=== PATIENT | female | born 1940 | race African-American/Black ===

== ENCOUNTER 2017-09-18 10:10 | Inpatient (IN) | payer OTHER ==
[~2017-09-18] VITALS: Ht 162.6 cm; Wt 65.3 kg
[2017-09-18] MEDS ORDERED: ASPIRIN 81MG TABLET PO STA (10:21)
[2017-09-18 11:01] LABS: BASOPHILS % 0.3 % (0.0-2.0); EOSINOPHILS % 0.9 % (0.0-5.0); HEMATOCRIT. 25.1 % (36.0-48.0); HEMOGLOBIN. 8.4 g/dL (12.0-16.0); LYMPHOCYTES % 21.9 % (20.0-50.0); MEAN CORPUSCULAR HEMOGLOBIN 29.5 pg (28.0-32.0); MEAN CORPUSCULAR VOLUME 88.4 fL (81.0-99.0); MEAN PLATELET VOLUME 8.2 fl (7.4-10.4); MONOCYTES % 5.6 % (2.0-8.0); NEUTROPHILS % 71.3 % (40.0-76.0); PLATELET 248 x1000/uL (130-400); RED BLOOD CELL COUNT 2.84 mill/uL (4.2-5.4); RED CELL DISTRIBUTION WIDTH 14.1 % (11.6-14.6)
[2017-09-18] MEDS ORDERED: MORPHINE SULFATE 4 MG/ML CPJ (NOT FOR IM USE) IV STA (11:06)
[2017-09-18] MEDS ORDERED: ONDANSETRON HCL 4MG/2ML VIAL IV STA (11:06)
[2017-09-18 11:15] LABS: CHLORIDE 105 mEq/L (98-107)
[2017-09-18 11:29] LABS: BG BASE EXCESS 1.2 mmol/L (-2.0-2.0); BG CARBOXYHEMOGLOBIN 0.2 % (0.5-1.5); BG DEOXYHEMOGLOBIN 0.2 % (0.0-5.0); BG FRACTION INSPIRED OXYGEN 100; BG HCO3 ACT 20.8 mmol/L (22.0-26.0); BG METHEMOGLOBIN 0.2 % (0.0-1.5); BG OXYGEN SATURATION 99.8 % (92.0-98.5); BG OXYHEMOGLOBIN 99.4 % (94.0-97.0); BG PCO2 18.1 mmHg (35.0-45.0); BG PH 7.679 (7.350-7.450); BG PO2 549.4 mmHg (75.0-100.0); BG SAMPLE SITE RIGHT BRACHIAL; BG VENT MODE MASK - BIPAP; BG VENT RATE 20 set
[2017-09-18 11:52] LABS: D-DIMER 0.89 mg/L FEU (<0.50); INR 1.1; PARTIAL THROMBOPLASTIN TIME 21.4 sec (23.4-31.0); PROTHROMBIN TIME 11.2 sec (9.4-11.6)
[2017-09-18] MEDS ORDERED: ENOXAPARIN 80MG/0.8ML SYR SUBCUT ONE (12:30)
[2017-09-18 16:23] VITALS: BP 118/72
[2017-09-18 16:51] VITALS: BP 118/72
[2017-09-18] MEDS ORDERED: LORAZEPAM 1MG TABLET PO PRN (17:00)
[2017-09-18] MEDS ORDERED: GUAIFENESIN 200MG/10ML SUGAR FREE UDC PO PRN (17:45)
[2017-09-18] MEDS ORDERED: IPRATROPIUM/ALBUTEROL 0.5-3(2.5)MG/3ML NEB INH PRN (17:45)
[2017-09-18] MEDS ORDERED: DOCUSATE SODIUM 100MG CAPSULE PO PRN (17:45)
[2017-09-18] MEDS ORDERED: MAGNESIUM/ALUMINUM HYDROXIDE/SIMETHICONE 30ML UDC PO PRN (17:45)
[2017-09-18] MEDS ORDERED: DIPHENHYDRAMINE 50MG/ML VIAL IV PRN (17:45)
[2017-09-18] MEDS ORDERED: ACETAMINOPHEN 650MG SUPP PR PRN (17:45)
[2017-09-18] MEDS ORDERED: ACETAMINOPHEN 325MG TABLET PO PRN (17:45)
[2017-09-18] MEDS ORDERED: DEXTROSE 50% WATER 50ML SYRINGE IV PRN (17:45)
[2017-09-18] MEDS ORDERED: ACETAMINOPHEN 650MG/20.3ML UDC GT PRN (17:45)
[2017-09-18] MEDS ORDERED: ONDANSETRON HCL 4MG/2ML VIAL IV PRN (17:45)
[2017-09-18] MEDS ORDERED: CLONIDINE 0.1MG TABLET PO PRN (17:45)
[2017-09-18] MEDS ORDERED: METHYLPREDNISOLONE SOD SUCC 40 MG/ML VIAL IV SCH (17:45)
[2017-09-18] MEDS ORDERED: NA PHOS,M-B/NA PHOS,DI-BA ENEMA 118ML PR PRN (17:45)
[2017-09-18] MEDS ORDERED: HYDROCODONE/ACETAMINOPHEN 5/325MG TABLET PO PRN (17:45)
[2017-09-18 17:53] LABS: BG BASE EXCESS -4.9 mmol/L (-2.0-2.0); BG CARBOXYHEMOGLOBIN 0.3 % (0.5-1.5); BG DEOXYHEMOGLOBIN 6.5 % (0.0-5.0); BG FRACTION INSPIRED OXYGEN 32; BG HCO3 ACT 18.9 mmol/L (22.0-26.0); BG OXYGEN SATURATION 93.5 % (92.0-98.5); BG OXYHEMOGLOBIN 93.2 % (94.0-97.0); BG PCO2 30.8 mmHg (35.0-45.0); BG PH 7.405 (7.350-7.450); BG PO2 73.9 mmHg (75.0-100.0); BG SAMPLE SITE RIGHT BRACHIAL; BG VENT MODE NASAL CANNULA
[2017-09-18] MEDS: METHYLPREDNISOLONE SOD SUCC 125 MG/2 ML VIAL IV SCH (17:57)
[2017-09-18] MEDS: PANTOPRAZOLE SODIUM 40 MG/VIAL IV SCH (18:02)
[2017-09-18] MEDS ORDERED: LEVOFLOXACIN 500MG PREMIX 100 ML IV NR (19:00)
[2017-09-18] MEDS ORDERED: FLUT1DIS2 IH (19:50)
[2017-09-18] MEDS ORDERED: ATOR40TA70 PO (19:50)
[2017-09-18] MEDS ORDERED: PRED5TAB48 PO (19:50)
[2017-09-18] MEDS ORDERED: OMEP20CA10 PO (19:50)
[2017-09-18] MEDS ORDERED: ASPI-1159 PO (19:50)
[2017-09-18] MEDS ORDERED: MEMA10TA2 PO (19:50)
[2017-09-18] MEDS ORDERED: MIDO10TA PO (19:50)
[2017-09-18] MEDS ORDERED: HYDR12.54 PO (19:50)
[2017-09-18] MEDS ORDERED: LISI-604 PO (19:50)
[2017-09-18] MEDS ORDERED: GABA100C PO (19:50)
[2017-09-18] MEDS ORDERED: MORP30TA54 PO (19:50)
[2017-09-18] MEDS ORDERED: FORTICAL (19:52)
[2017-09-18 20:00] VITALS: BP 126/57
[2017-09-18] MEDS ORDERED: INSNPH SUBCUT (20:01)
[2017-09-18] MEDS: IPRATROPIUM/ALBUTEROL 0.5-3(2.5)MG/3ML NEB HHN SCH (20:48)
[2017-09-18] MEDS: BLOOD SUGAR DIAGNOSTIC STRIP TEST SCH (21:00)
[2017-09-18] MEDS: INSULIN LISPRO 100 UNITS/ML SUBCUT SCH (21:30)
[2017-09-18] MEDS: SODIUM CHLORIDE 0.9% INJ 3ML FLUSH IVF SCH (21:41)
[2017-09-18 22:00] VITALS: BP 116/66
[2017-09-18 23:41] LABS: CREATINE KINASE 46 IU/L (26-192)
[2017-09-19] VITALS (20 sets, daily range): BP systolic 91–151; BP diastolic 53–86
[2017-09-19] MEDS: IPRATROPIUM/ALBUTEROL 0.5-3(2.5)MG/3ML NEB HHN SCH ×6 (00:45→20:58)
[2017-09-19] MEDS ORDERED: HALOPERIDOL LACTATE 5MG/ML VIAL IM SCH (02:07)
[2017-09-19] MEDS ORDERED: HALOPERIDOL LACTATE 5MG/ML VIAL IM ONE (02:45)
[2017-09-19] MEDS: METHYLPREDNISOLONE SOD SUCC 125 MG/2 ML VIAL IV SCH ×2 (02:46→09:05)
[2017-09-19] MEDS: SODIUM CHLORIDE 0.9% INJ 3ML FLUSH IVF SCH ×3 (05:56→22:11)
[2017-09-19] MEDS: BLOOD SUGAR DIAGNOSTIC STRIP TEST SCH ×4 (05:56→22:01)
[2017-09-19 07:29] LABS: MEAN CORPUSCULAR HEMOGLOBIN 29.5 pg (28.0-32.0); MEAN CORPUSCULAR VOLUME 90.6 fL (81.0-99.0); MEAN PLATELET VOLUME 8.4 fl (7.4-10.4); PLATELET 238 x1000/uL (130-400); RED BLOOD CELL COUNT 2.18 mill/uL (4.2-5.4); RED CELL DISTRIBUTION WIDTH 14.7 % (11.6-14.6)
[2017-09-19] MEDS: INSULIN LISPRO 100 UNITS/ML SUBCUT SCH ×4 (08:08→22:11)
[2017-09-19 08:12] LABS: CHLORIDE 111 mEq/L (98-107)
[2017-09-19 08:37] LABS: CREATINE KINASE 46 IU/L (26-192); HDL CHOLESTEROL 36 mg/dL (40-59); LDL CHOLESTEROL 37 mg/dL (5-100)
[2017-09-19 08:59] LABS: BG BASE EXCESS -4.9 mmol/L (-2.0-2.0); BG CARBOXYHEMOGLOBIN 0.4 % (0.5-1.5); BG DEOXYHEMOGLOBIN 4.5 % (0.0-5.0); BG FRACTION INSPIRED OXYGEN 21; BG HCO3 ACT 19.2 mmol/L (22.0-26.0); BG METHEMOGLOBIN 0.3 % (0.0-1.5); BG OXYGEN SATURATION 95.5 % (92.0-98.5); BG OXYHEMOGLOBIN 94.8 % (94.0-97.0); BG PCO2 31.2 mmHg (35.0-45.0); BG PH 7.407 (7.350-7.450); BG PO2 86.3 mmHg (75.0-100.0); BG SAMPLE SITE RIGHT BRACHIAL; BG TOTAL HEMOGLOBIN 7.3 g/dL (12.0-18.0); BG VENT MODE ROOM AIR
[2017-09-19] MEDS ORDERED: ENOXAPARIN 40MG/0.4ML SYR SUBCUT SCH (09:00)
[2017-09-19] MEDS: PANTOPRAZOLE SODIUM 40 MG/VIAL IV SCH (09:05)
[2017-09-19 10:01] LABS: HEMOGLOBIN. 6.4 g/dL (12.0-16.0)
[2017-09-19 10:03] LABS: HEMATOCRIT. 19.7 % (36.0-48.0)
[2017-09-19 13:16] LABS: TOTAL IRON BINDING CAPACITY 202 ug/dL (250-450)
[2017-09-19 13:38] LABS: FOLIC ACID (FOLATE) SERUM >20 ng/mL ng/mL (>5.38)
[2017-09-19 13:43] LABS: VITAMIN B12 SERUM 252 pg/mL (211-911)
[2017-09-19] MEDS: METHYLPREDNISOLONE SOD SUCC 40 MG/ML VIAL IV SCH (17:28)
[2017-09-19 19:00] LABS: PLATELET ESTIMATE NORMAL
[2017-09-19] MEDS ORDERED: LEVOFLOXACIN 250MG PREMIX 50 ML IV SCH (20:00)
[2017-09-19 21:46] LABS: HEMATOCRIT 28.2 % (36.0-48.0); HEMOGLOBIN 9.7 g/dL (12.0-16.0)
[2017-09-19 21:55] LABS: INR 1.1
[2017-09-20] VITALS (14 sets, daily range): BP systolic 104–154; BP diastolic 59–76
[2017-09-20] MEDS: IPRATROPIUM/ALBUTEROL 0.5-3(2.5)MG/3ML NEB HHN SCH ×6 (00:47→20:01)
[2017-09-20] MEDS: METHYLPREDNISOLONE SOD SUCC 40 MG/ML VIAL IV SCH ×3 (01:42→17:05)
[2017-09-20] MEDS: BLOOD SUGAR DIAGNOSTIC STRIP TEST SCH ×3 (06:35→16:41)
[2017-09-20] MEDS: SODIUM CHLORIDE 0.9% INJ 3ML FLUSH IVF SCH ×2 (06:40→17:06)
[2017-09-20] MEDS: INSULIN LISPRO 100 UNITS/ML SUBCUT SCH ×3 (07:57→17:06)
[2017-09-20] MEDS: PANTOPRAZOLE SODIUM 40 MG/VIAL IV SCH (09:46)
[2017-09-20] MEDS ORDERED: PREDNISONE 10MG TABLET PO SCH (10:30)
== END 2017-09-20 21:02 | disposition short-term general hospital (02) | DRG 189 ==
LOC: ER 10:10 → 3WST 12:48 → EDBEDREQTM 12:50 → EDBEDREQ 12:50 → ENRESERV 14:07 → 3WST 17:08
PROVIDERS: ADMIT Family Medicine; ATTEND Family Medicine
PROC: 5A09357 Assistance with Respiratory Ventilation, Less than 24 Consecutive Hours, Continuous Positive Airway Pressure (ICD-10-PCS; principal; 2017-09-18)
PROC: 30233N1 Transfusion of Nonautologous Red Blood Cells into Peripheral Vein, Percutaneous Approach (ICD-10-PCS; 2017-09-19)
DX: J96.01 Acute respiratory failure with hypoxia (principal); D64.9 Anemia, unspecified; E11.9 Type 2 diabetes mellitus without complications; J44.9 Chronic obstructive pulmonary disease, unspecified; E87.6 Hypokalemia; I10 Essential (primary) hypertension; K92.1 Melena; J45.20 Mild intermittent asthma, uncomplicated; K21.9 Gastro-esophageal reflux disease without esophagitis; Z88.0 Allergy status to penicillin
CPT/HCPCS: 36415; 36600; 71045; 73521; 78582; 80053; 80061; 82270; 82375; 82550; 82607; 82746; 82805; 82962; 83540; 83550; 83880; 84484; 85014; 85018; 85025; 85049; 85379; 85384; 85610; 85730; 86850; 86900; 86920; 93005; 93970; 94640; 94660; 94664; 96372; 96374; 96375; 99291; A9558; C1893; C9113; J1630; J1650; J1815; J1956; J2270; J2405; J2920; J2930; J7050; J7620; P9016

== ENCOUNTER 2019-10-03 09:42 | Emergency (ER) | payer OTHER ==
[~2019-10-03] VITALS: Ht 165.1 cm; Wt 74.0 kg
[~2019-10-03 09:42] MED LIST: ASPI-1497 PO; ATOR40TA70 PO; FLUT1DIS2 IH; FORTICAL; GABA100C PO; HYDR12.54 PO; INSNPH SUBCUT; LISI-604 PO; MEMA10TA2 PO; MIDO10TA PO; MORP30TA54 PO; OMEP20CA14 PO; PRED5TAB48 PO
[2019-10-03 11:13] LABS: BASOPHILS % 0.4 % (0.0-2.0); EOSINOPHILS % 2.4 % (0.0-5.0); HEMATOCRIT. 37.7 % (36.0-48.0); HEMOGLOBIN. 12.4 g/dL (12.0-16.0); LYMPHOCYTES % 21.6 % (20.0-50.0); MEAN CORPUSCULAR HEMOGLOBIN 29.3 pg (28.0-32.0); MEAN CORPUSCULAR VOLUME 89.1 fL (81.0-99.0); MEAN PLATELET VOLUME 8.4 fl (7.4-10.4); MONOCYTES % 7.2 % (2.0-8.0); NEUTROPHILS % 68.4 % (40.0-76.0); PLATELET 242 x1000/uL (130-400); RED BLOOD CELL COUNT 4.23 mill/uL (4.2-5.4); RED CELL DISTRIBUTION WIDTH 13.9 % (11.6-14.6)
[2019-10-03 11:21] LABS: CHLORIDE 104 mEq/L (98-107); PROTHROMBIN TIME 11.1 sec (9.6-11.0)
[2019-10-03 11:25] LABS: ETHANOL BLOOD < 10 mg/dL
[2019-10-03 11:30] LABS: CREATINE KINASE 50 IU/L (26-192)
[2019-10-03 11:57] LABS: CLARITY URINE CLEAR (CLEAR); COLOR URINE YELLOW (YELLOW); KETONES URINE NEGATIVE (NEGATIVE); LEUKOCYTE ESTERASE URINE 1+ (NEGATIVE); NITRITE URINE NEGATIVE (NEGATIVE); OCCULT BLOOD URINE NEGATIVE (NEGATIVE); PROTEIN URINE NEGATIVE (NEGATIVE); UROBILINOGEN URINE 0.2 E.U./dL (0.2-1.0)
[2019-10-03 12:58] LABS: *AMPHETAMINES SCREEN URINE NEGATIVE (NEGATIVE); *BENZODIAZEPINES SCREEN URINE NEGATIVE (NEGATIVE); CANNABINOID URINE SCREEN NEGATIVE (NEGATIVE); METHADONE URINE SCREEN NEGATIVE (NEGATIVE); OPIATES URINE SCREEN NEGATIVE (NEGATIVE); PHENCYCLIDINE URINE SCREEN NEGATIVE (NEGATIVE)
[2019-10-03 12:59] LABS: *COCAINE SCREEN URINE NEGATIVE (NEGATIVE)
[2019-10-03 13:01] LABS: *BARBITURATES SCREEN URINE PRESUMTIVE POSITIVE (NEGATIVE)
[2019-10-03 14:56] VITALS: BP 144/99
== END 2019-10-03 15:21 | disposition short-term general hospital (02) ==
LOC: EDBD → ER 09:42 → CANBEDREQ 22:58
DX: N39.0 Urinary tract infection, site not specified (principal); E86.0 Dehydration; E11.9 Type 2 diabetes mellitus without complications; J44.9 Chronic obstructive pulmonary disease, unspecified; Z86.73 Personal history of transient ischemic attack (TIA), and cerebral infarction without residual deficits; Z88.0 Allergy status to penicillin; Z79.82 Long term (current) use of aspirin; Z79.4 Long term (current) use of insulin
CPT/HCPCS: 36415; 71045; 80053; 80305; 80320; 81003; 82550; 82962; 83605; 83721; 83880; 84484; 85025; 86703; 87804; 93005; 99291; G0480

== ENCOUNTER 2019-10-07 17:13 | Inpatient (IN) | payer OTHER ==
[~2019-10-07] VITALS: Ht 160 cm; Wt 60.8 kg
[2019-10-07] MEDS ORDERED: VECURONIUM BROMIDE 10 MG/VIAL IV ONE ×2 (18:00)
[2019-10-07] MEDS ORDERED: PROPOFOL 10MG/ML 100ML 100 ML IV ONE (18:00)
[2019-10-07] MEDS ORDERED: SODIUM CHLORIDE 0.9% 10ML VIAL ONE (18:00)
[2019-10-07] MEDS ORDERED: ETOMIDATE 2MG/ML 10ML VIAL IV ONE ×2 (18:00)
[2019-10-07 18:31] LABS: CHLORIDE 104 mEq/L (98-107)
[2019-10-07 18:32] LABS: BASOPHILS % 0.4 % (0.0-2.0); EOSINOPHILS % 1.6 % (0.0-5.0); HEMOGLOBIN. 12.6 g/dL (12.0-16.0); LYMPHOCYTES % 20.8 % (20.0-50.0); MEAN CORPUSCULAR HEMOGLOBIN 29.5 pg (28.0-32.0); MEAN CORPUSCULAR VOLUME 89.3 fL (81.0-99.0); NEUTROPHILS % 71.2 % (40.0-76.0); RED BLOOD CELL COUNT 4.26 mill/uL (4.2-5.4); RED CELL DISTRIBUTION WIDTH 14.3 % (11.6-14.6)
[2019-10-07 18:38] LABS: ETHANOL BLOOD < 10 mg/dL
[2019-10-07 18:42] LABS: MEAN PLATELET VOLUME 9.1 fl (7.4-10.4); PLATELET 236 x1000/uL (130-400)
[2019-10-07 18:43] LABS: PLATELET ESTIMATE NORMAL
[2019-10-07 20:53] LABS: CLARITY URINE CLEAR (CLEAR); COLOR URINE YELLOW (YELLOW); KETONES URINE NEGATIVE (NEGATIVE); LEUKOCYTE ESTERASE URINE NEGATIVE (NEGATIVE); NITRITE URINE NEGATIVE (NEGATIVE); OCCULT BLOOD URINE NEGATIVE (NEGATIVE); PH URINE 6.5 (4.5-8.0); PROTEIN URINE NEGATIVE (NEGATIVE); SPECIFIC GRAVITY URINE 1.008 (1.005-1.030); UROBILINOGEN URINE 0.2 E.U./dL (0.2-1.0)
[2019-10-07 20:59] LABS: INR 1.1; PARTIAL THROMBOPLASTIN TIME 20.8 sec (23.4-31.0); PROTHROMBIN TIME 11.4 sec (9.6-11.0)
[2019-10-07] MEDS ORDERED: LORAZEPAM 2MG/ML CPJ IV PRN (21:00)
[2019-10-07] MEDS ORDERED: DEXTROSE 50% WATER 50ML SYRINGE IV PRN (21:00)
[2019-10-07] MEDS ORDERED: MIDAZOLAM HCL 50 MG in DEXTROSE 5% WATER 40 ML IV ONE ×2 (21:00→21:30)
[2019-10-07] MEDS ORDERED: NA PHOS,M-B/NA PHOS,DI-BA ENEMA 118ML PR PRN (21:00)
[2019-10-07] MEDS ORDERED: GUAIFENESIN 200MG/10ML SUGAR FREE UDC PO PRN (21:00)
[2019-10-07] MEDS ORDERED: CLONIDINE 0.1MG TABLET PO PRN (21:00)
[2019-10-07] MEDS ORDERED: MORPHINE SULFATE 2 MG/ML CPJ (NOT FOR IM USE) IV PRN (21:00)
[2019-10-07] MEDS ORDERED: HYDRALAZINE 20MG/ML VIAL IV PRN (21:00)
[2019-10-07] MEDS ORDERED: MAGNESIUM/ALUMINUM HYDROXIDE/SIMETHICONE 30ML UDC PO PRN (21:00)
[2019-10-07] MEDS ORDERED: IPRATROPIUM/ALBUTEROL 0.5-3(2.5)MG/3ML NEB NEB PRN (21:00)
[2019-10-07] MEDS ORDERED: HYDROCODONE/ACETAMINOPHEN 10/325MG TABLET PO PRN (21:00)
[2019-10-07 21:06] LABS: *AMPHETAMINES SCREEN URINE NEGATIVE (NEGATIVE); *BARBITURATES SCREEN URINE PRESUMTIVE POSITIVE (NEGATIVE); *BENZODIAZEPINES SCREEN URINE NEGATIVE (NEGATIVE); CANNABINOID URINE SCREEN NEGATIVE (NEGATIVE)
[2019-10-07 21:08] LABS: *COCAINE SCREEN URINE NEGATIVE (NEGATIVE); METHADONE URINE SCREEN NEGATIVE (NEGATIVE); OPIATES URINE SCREEN NEGATIVE (NEGATIVE); PHENCYCLIDINE URINE SCREEN NEGATIVE (NEGATIVE)
[2019-10-07] MEDS: ENOXAPARIN 40MG/0.4ML SYR SUBCUT SCH (22:00)
[2019-10-07] MEDS: BLOOD SUGAR DIAGNOSTIC STRIP TEST SCH (22:12)
[2019-10-07] MEDS ORDERED: PROPOFOL 10MG/ML 100ML 100 ML IV SCH (22:15)
[2019-10-08] VITALS (10 sets, daily range): BP systolic 70–135; BP diastolic 23–97
[2019-10-08] MEDS: DEXT 5%/0.45% NACL 1000ML 1,000 ML IV SCH (03:50)
[2019-10-08 06:13] LABS: CHLORIDE 106 mEq/L (98-107)
[2019-10-08 06:17] LABS: BASOPHILS % 0.5 % (0.0-2.0); EOSINOPHILS % 0.7 % (0.0-5.0); HEMATOCRIT. 41.3 % (36.0-48.0); HEMOGLOBIN. 13.3 g/dL (12.0-16.0); LYMPHOCYTES % 14.9 % (20.0-50.0); MEAN CORPUSCULAR HEMOGLOBIN 29.3 pg (28.0-32.0); MEAN CORPUSCULAR VOLUME 91.4 fL (81.0-99.0); MEAN PLATELET VOLUME 8.3 fl (7.4-10.4); MONOCYTES % 7.1 % (2.0-8.0); NEUTROPHILS % 76.8 % (40.0-76.0); PLATELET 182 x1000/uL (130-400); RED BLOOD CELL COUNT 4.52 mill/uL (4.2-5.4); RED CELL DISTRIBUTION WIDTH 14.3 % (11.6-14.6)
[2019-10-08 06:21] LABS: CREATINE KINASE 153 IU/L (26-192); CREATINE KINASE MB FRACTION 8.6 ng/mL (0.5-3.6)
[2019-10-08] MEDS: BLOOD SUGAR DIAGNOSTIC STRIP TEST SCH ×3 (09:00→21:00)
[2019-10-08 10:11] LABS: BG BASE EXCESS -2.5 mmol/L (-2.0-2.0); BG DEOXYHEMOGLOBIN 0.9 % (0.0-5.0); BG HCO3 ACT 19.9 mmol/L (22.0-26.0); BG METHEMOGLOBIN 0.1 % (0.0-1.5); BG OXYGEN SATURATION 99.1 % (92.0-98.5); BG PO2 149.7 mmHg (75.0-100.0); BG SAMPLE SITE RIGHT BRACHIAL; BG TIDAL VOLUME(mL) 450 mL; BG TOTAL HEMOGLOBIN 12.8 g/dL (12.0-18.0); BG VENT MODE VENT - A/C; BG VENT RATE 14 set
[2019-10-08] MEDS ORDERED: MIDAZOLAM HCL 50 MG in DEXTROSE 5% WATER 40 ML IV ONE (12:15)
[2019-10-08] MEDS: SODIUM CHLORIDE 0.9% INJ 3ML FLUSH IVF SCH ×2 (13:02→22:38)
[2019-10-08] MEDS ORDERED: FENTANYL CITRATE/PF 500 MCG in SODIUM CHLORIDE 0.9% 40 ML IV PRN ×2 (13:15→21:30)
[2019-10-08] MEDS ORDERED: MIDAZOLAM HCL 50 MG in DEXTROSE 5% WATER 40 ML IV PRN (13:15)
[2019-10-08 13:28] LABS: T4 FREE 1.12 ng/dL (0.76-1.46)
[2019-10-08] MEDS ORDERED: AZITHROMYCIN 500 MG in DEXT 5% WATER 250 ML IV NR ×2 (14:30→15:00)
[2019-10-08] MEDS: INSULIN LISPRO 100 UNITS/ML SUBCUT SCH ×2 (21:00→23:21)
[2019-10-08] MEDS: ACETAMINOPHEN 325MG TABLET PO PRN (23:21)
[2019-10-08] MEDS: ENOXAPARIN 40MG/0.4ML SYR SUBCUT SCH (23:21)
[2019-10-09] VITALS (92 sets, daily range): BP systolic 82–133; BP diastolic 41–71
[2019-10-09] MEDS: DEXT 5%/0.45% NACL 1000ML 1,000 ML IV SCH ×2 (00:59→17:11)
[2019-10-09] MEDS: MIDAZOLAM HCL 50 MG in DEXTROSE 5% WATER 40 ML IV PRN ×2 (02:12→13:25)
[2019-10-09] MEDS: SODIUM CHLORIDE 0.9% INJ 3ML FLUSH IVF SCH ×3 (05:24→20:15)
[2019-10-09 05:38] LABS: BASOPHILS % 0.3 % (0.0-2.0); EOSINOPHILS % 0.2 % (0.0-5.0); HEMATOCRIT. 36.9 % (36.0-48.0); HEMOGLOBIN. 12.1 g/dL (12.0-16.0); LYMPHOCYTES % 12.1 % (20.0-50.0); MEAN CORPUSCULAR VOLUME 88.8 fL (81.0-99.0); MEAN PLATELET VOLUME 8.7 fl (7.4-10.4); MONOCYTES % 7.9 % (2.0-8.0); NEUTROPHILS % 79.5 % (40.0-76.0); PLATELET 217 x1000/uL (130-400); RED BLOOD CELL COUNT 4.16 mill/uL (4.2-5.4); RED CELL DISTRIBUTION WIDTH 14.3 % (11.6-14.6)
[2019-10-09 05:46] LABS: CHLORIDE 101 mEq/L (98-107)
[2019-10-09] MEDS: BLOOD SUGAR DIAGNOSTIC STRIP TEST SCH ×4 (05:56→20:15)
[2019-10-09] MEDS: INSULIN LISPRO 100 UNITS/ML SUBCUT SCH ×4 (06:04→20:20)
[2019-10-09] MEDS: IPRATROPIUM/ALBUTEROL 0.5-3(2.5)MG/3ML NEB HHN SCH ×2 (08:11→16:04)
[2019-10-09] MEDS: PANTOPRAZOLE SODIUM 40 MG/VIAL IV SCH (08:58)
[2019-10-09 10:24] LABS: BG BASE EXCESS -1.1 mmol/L (-2.0-2.0); BG CARBOXYHEMOGLOBIN 0.3 % (0.5-1.5); BG DEOXYHEMOGLOBIN 0.9 % (0.0-5.0); BG FRACTION INSPIRED OXYGEN 35; BG HCO3 ACT 21.5 mmol/L (22.0-26.0); BG METHEMOGLOBIN 0.4 % (0.0-1.5); BG OXYGEN SATURATION 99.1 % (92.0-98.5); BG OXYHEMOGLOBIN 98.4 % (94.0-97.0); BG PCO2 29.7 mmHg (35.0-45.0); BG PH 7.477 (7.350-7.450); BG PO2 152.1 mmHg (75.0-100.0); BG SAMPLE SITE RIGHT RADIAL; BG TIDAL VOLUME(mL) 500 mL; BG TOTAL HEMOGLOBIN 12.4 g/dL (12.0-18.0); BG VENT MODE VENT - A/C; BG VENT RATE 12 set
[2019-10-09] MEDS ORDERED: AZITHROMYCIN 500 MG in DEXT 5% WATER 250 ML IV SCH (13:00)
[2019-10-09] MEDS ORDERED: MEROPENEM 1,000 MG in SODIUM CHLORIDE 0.9% 100 ML IV SCH ×2 (13:30→15:00)
[2019-10-09] MEDS: MEROPENEM-0.9% SODIUM CHLORIDE 50 ML IV SCH (15:00)
[2019-10-09] MEDS ORDERED: VANCOMYCIN 1250MG in DEXTROSE 5% WATER 250ML IV SCH (15:00)
[2019-10-09] MEDS: ENOXAPARIN 40MG/0.4ML SYR SUBCUT SCH (20:19)
[2019-10-10] VITALS (47 sets, daily range): BP systolic 100–163; BP diastolic 54–102
[2019-10-10] MEDS: MEROPENEM-0.9% SODIUM CHLORIDE 50 ML IV SCH ×3 (00:21→20:40)
[2019-10-10] MEDS: ACETAMINOPHEN 325MG TABLET PO PRN (00:22)
[2019-10-10] MEDS: IPRATROPIUM/ALBUTEROL 0.5-3(2.5)MG/3ML NEB HHN SCH ×3 (00:28→16:00)
[2019-10-10] MEDS: MIDAZOLAM HCL 50 MG in DEXTROSE 5% WATER 40 ML IV PRN (01:05)
[2019-10-10 05:46] LABS: CHLORIDE 102 mEq/L (98-107)
[2019-10-10 05:48] LABS: BASOPHILS % 0.2 % (0.0-2.0); EOSINOPHILS % 1.3 % (0.0-5.0); HEMATOCRIT. 34.1 % (36.0-48.0); HEMOGLOBIN. 11.2 g/dL (12.0-16.0); LYMPHOCYTES % 11.1 % (20.0-50.0); MEAN CORPUSCULAR VOLUME 88.1 fL (81.0-99.0); MEAN PLATELET VOLUME 8.8 fl (7.4-10.4); MONOCYTES % 6.1 % (2.0-8.0); NEUTROPHILS % 81.3 % (40.0-76.0); PLATELET 203 x1000/uL (130-400); RED BLOOD CELL COUNT 3.87 mill/uL (4.2-5.4); RED CELL DISTRIBUTION WIDTH 14.2 % (11.6-14.6)
[2019-10-10] MEDS: SODIUM CHLORIDE 0.9% INJ 3ML FLUSH IVF SCH ×3 (06:16→22:39)
[2019-10-10] MEDS: VANCOMYCIN 1,000 MG in DEXT 5% WATER 250 ML IV SCH ×2 (06:16→23:56)
[2019-10-10] MEDS: BLOOD SUGAR DIAGNOSTIC STRIP TEST SCH ×4 (08:04→23:56)
[2019-10-10 08:33] LABS: BG SAMPLE SITE Right Brachial
[2019-10-10 08:34] LABS: BG FRACTION INSPIRED OXYGEN 100; BG PH 7.504 (7.350-7.450); BG TIDAL VOLUME(mL) 450 mL; BG VENT MODE VENT-A/C; BG VENT RATE 14 set
[2019-10-10 08:35] LABS: BG BASE EXCESS -1.1 mmol/L (-2.0-2.0); BG HCO3 ACT 20.8 mmol/L (22.0-26.0); BG METHEMOGLOBIN 0.3 % (0.0-1.5); BG OXYGEN SATURATION 99.9 % (92.0-98.5); BG OXYHEMOGLOBIN 99.6 % (94.0-97.0); BG PO2 531.8 mmHg (75.0-100.0)
[2019-10-10 08:36] LABS: BG DEOXYHEMOGLOBIN 0.1 % (0.0-5.0)
[2019-10-10 08:43] LABS: BG BASE EXCESS 0.2 mmol/L (-2.0-2.0); BG CARBOXYHEMOGLOBIN 0.3 % (0.5-1.5); BG DEOXYHEMOGLOBIN 1.2 % (0.0-5.0); BG FRACTION INSPIRED OXYGEN 35; BG HCO3 ACT 23.2 mmol/L (22.0-26.0); BG METHEMOGLOBIN 0.3 % (0.0-1.5); BG OXYGEN SATURATION 98.8 % (92.0-98.5); BG OXYHEMOGLOBIN 98.2 % (94.0-97.0); BG PCO2 32.1 mmHg (35.0-45.0); BG PH 7.476 (7.350-7.450); BG PO2 137.6 mmHg (75.0-100.0); BG SAMPLE SITE RIGHT BRACHIAL; BG TIDAL VOLUME(mL) 500 mL; BG TOTAL HEMOGLOBIN 11.9 g/dL (12.0-18.0); BG VENT MODE VENT - A/C; BG VENT RATE 12 set
[2019-10-10] MEDS ORDERED: POTASSIUM CHLORIDE 20MEQ TABLET SR PO SCH (08:45)
[2019-10-10] MEDS ORDERED: VANCOMYCIN HCL 750 MG in DEXT 5% WATER 250 ML IV SCH (09:00)
[2019-10-10] MEDS: PANTOPRAZOLE SODIUM 40 MG/VIAL IV SCH (09:08)
[2019-10-10] MEDS: AZITHROMYCIN 500 MG in DEXT 5% WATER 250 ML IV SCH (09:09)
[2019-10-10] MEDS: INSULIN LISPRO 100 UNITS/ML SUBCUT SCH ×3 (09:09→23:55)
[2019-10-10] MEDS ORDERED: INSULIN LISPRO 100 UNITS/ML SUBCUT SCH (13:20)
[2019-10-10] MEDS: ENOXAPARIN 40MG/0.4ML SYR SUBCUT SCH (20:41)
[2019-10-10] MEDS: DIPHENHYDRAMINE 50MG/ML VIAL IV PRN (22:38)
[2019-10-10] MEDS: LORAZEPAM 2MG/ML CPJ IV PRN (23:55)
[2019-10-11] VITALS (31 sets, daily range): BP systolic 95–176; BP diastolic 24–91
[2019-10-11] MEDS: IPRATROPIUM/ALBUTEROL 0.5-3(2.5)MG/3ML NEB HHN SCH ×3 (00:06→16:08)
[2019-10-11] MEDS: DEXT 5%/0.45% NACL 1000ML 1,000 ML IV SCH ×2 (02:37→20:55)
[2019-10-11 05:43] LABS: BASOPHILS % 0.2 % (0.0-2.0); EOSINOPHILS % 0.4 % (0.0-5.0); HEMOGLOBIN. 11.4 g/dL (12.0-16.0); LYMPHOCYTES % 7.5 % (20.0-50.0); MEAN CORPUSCULAR VOLUME 89.1 fL (81.0-99.0); MEAN PLATELET VOLUME 9.2 fl (7.4-10.4); MONOCYTES % 6.5 % (2.0-8.0); NEUTROPHILS % 85.4 % (40.0-76.0); PLATELET 185 x1000/uL (130-400); RED BLOOD CELL COUNT 3.92 mill/uL (4.2-5.4); RED CELL DISTRIBUTION WIDTH 13.7 % (11.6-14.6)
[2019-10-11 05:47] LABS: CHLORIDE 105 mEq/L (98-107)
[2019-10-11] MEDS: ONDANSETRON HCL 4MG/2ML INJ IV PRN (06:09)
[2019-10-11] MEDS: BLOOD SUGAR DIAGNOSTIC STRIP TEST SCH ×3 (06:23→17:57)
[2019-10-11] MEDS: INSULIN LISPRO 100 UNITS/ML SUBCUT SCH ×3 (06:23→18:00)
[2019-10-11] MEDS: SODIUM CHLORIDE 0.9% INJ 3ML FLUSH IVF SCH ×3 (06:23→21:15)
[2019-10-11] MEDS: AZITHROMYCIN 500 MG in DEXT 5% WATER 250 ML IV SCH (08:47)
[2019-10-11] MEDS: PANTOPRAZOLE SODIUM 40 MG/VIAL IV SCH (08:47)
[2019-10-11] MEDS: MEROPENEM-0.9% SODIUM CHLORIDE 50 ML IV SCH ×2 (08:47→21:13)
[2019-10-11] MEDS: LORAZEPAM 2MG/ML CPJ IV PRN (09:12)
[2019-10-11] MEDS: VANCOMYCIN HCL 750 MG in DEXT 5% WATER 250 ML IV SCH (16:53)
[2019-10-11 18:47] LABS: CLARITY URINE CLEAR (CLEAR); COLOR URINE YELLOW (YELLOW); KETONES URINE NEGATIVE (NEGATIVE); LEUKOCYTE ESTERASE URINE NEGATIVE (NEGATIVE); NITRITE URINE NEGATIVE (NEGATIVE); OCCULT BLOOD URINE 1+ (NEGATIVE); PH URINE 6.5 (4.5-8.0); PROTEIN URINE 1+ (NEGATIVE); SPECIFIC GRAVITY URINE 1.011 (1.005-1.030)
[2019-10-11] MEDS ORDERED: POTASSIUM CHLORIDE INJ 40 MEQ in DEXT 5% WATER 250 ML IV NR (21:00)
[2019-10-11] MEDS: ENOXAPARIN 40MG/0.4ML SYR SUBCUT SCH (21:14)
[2019-10-12] VITALS (26 sets, daily range): BP systolic 66–173; BP diastolic 20–103
[2019-10-12] MEDS: INSULIN LISPRO 100 UNITS/ML SUBCUT SCH ×4 (00:35→17:46)
[2019-10-12] MEDS: BLOOD SUGAR DIAGNOSTIC STRIP TEST SCH ×4 (00:37→17:43)
[2019-10-12] MEDS: VANCOMYCIN HCL 750 MG in DEXT 5% WATER 250 ML IV SCH ×3 (00:38→21:02)
[2019-10-12] MEDS: IPRATROPIUM/ALBUTEROL 0.5-3(2.5)MG/3ML NEB HHN SCH (01:01)
[2019-10-12 05:32] LABS: BASOPHILS % 0.3 % (0.0-2.0); EOSINOPHILS % 2.2 % (0.0-5.0); HEMATOCRIT. 28.3 % (36.0-48.0); HEMOGLOBIN. 9.4 g/dL (12.0-16.0); LYMPHOCYTES % 15.7 % (20.0-50.0); MEAN CORPUSCULAR HEMOGLOBIN 29.3 pg (28.0-32.0); MEAN PLATELET VOLUME 8.6 fl (7.4-10.4); MONOCYTES % 9.6 % (2.0-8.0); NEUTROPHILS % 72.2 % (40.0-76.0); PLATELET 192 x1000/uL (130-400); RED BLOOD CELL COUNT 3.22 mill/uL (4.2-5.4)
[2019-10-12 05:41] LABS: CHLORIDE 107 mEq/L (98-107)
[2019-10-12] MEDS: SODIUM CHLORIDE 0.9% INJ 3ML FLUSH IVF SCH ×3 (06:24→21:02)
[2019-10-12] MEDS: ASPIRIN 81MG TABLET PO SCH (08:57)
[2019-10-12] MEDS: PANTOPRAZOLE SODIUM 40 MG/VIAL IV SCH (08:57)
[2019-10-12] MEDS: MEROPENEM-0.9% SODIUM CHLORIDE 50 ML IV SCH ×2 (08:58→21:02)
[2019-10-12 10:06] LABS: BG CARBOXYHEMOGLOBIN 0.2 % (0.5-1.5); BG DEOXYHEMOGLOBIN 1.8 % (0.0-5.0); BG FRACTION INSPIRED OXYGEN 35; BG METHEMOGLOBIN 0.2 % (0.0-1.5); BG OXYGEN SATURATION 98.2 % (92.0-98.5); BG OXYHEMOGLOBIN 97.8 % (94.0-97.0); BG PCO2 20.7 mmHg (35.0-45.0); BG PH 7.625 (7.350-7.450); BG PO2 102.8 mmHg (75.0-100.0); BG PRESSURE SUPPORT 8; BG SAMPLE SITE RIGHT RADIAL; BG VENT MODE VENT - CPAP
[2019-10-12] MEDS: ONDANSETRON HCL 4MG/2ML INJ IV PRN (10:27)
[2019-10-12 11:55] LABS: BG BASE EXCESS 0.4 mmol/L (-2.0-2.0); BG CARBOXYHEMOGLOBIN 0.3 % (0.5-1.5); BG FRACTION INSPIRED OXYGEN 35; BG HCO3 ACT 23.5 mmol/L (22.0-26.0); BG METHEMOGLOBIN 0.1 % (0.0-1.5); BG OXYHEMOGLOBIN 97.6 % (94.0-97.0); BG PCO2 32.4 mmHg (35.0-45.0); BG PH 7.479 (7.350-7.450); BG PO2 107.3 mmHg (75.0-100.0); BG PRESSURE SUPPORT 8; BG SAMPLE SITE RIGHT RADIAL; BG TOTAL HEMOGLOBIN 10.3 g/dL (12.0-18.0); BG VENT MODE VENT - CPAP
[2019-10-12] MEDS ORDERED: RACEPINEPHRINE 2.25% 0.5ML NEB VIAL HHN NR (17:00)
[2019-10-12] MEDS: ENOXAPARIN 40MG/0.4ML SYR SUBCUT SCH (21:02)
[2019-10-12] MEDS: LORAZEPAM 2MG/ML CPJ IV PRN (23:23)
[2019-10-13] VITALS (18 sets, daily range): BP systolic 110–149; BP diastolic 52–80
[2019-10-13] MEDS: BLOOD SUGAR DIAGNOSTIC STRIP TEST SCH ×4 (00:17→17:17)
[2019-10-13] MEDS: IPRATROPIUM/ALBUTEROL 0.5-3(2.5)MG/3ML NEB HHN SCH ×3 (00:25→21:16)
[2019-10-13] MEDS: INSULIN LISPRO 100 UNITS/ML SUBCUT SCH ×4 (00:29→17:43)
[2019-10-13] MEDS: DEXT 5%/0.45% NACL 1000ML 1,000 ML IV SCH (03:28)
[2019-10-13] MEDS: SODIUM CHLORIDE 0.9% INJ 3ML FLUSH IVF SCH ×3 (05:44→21:03)
[2019-10-13] MEDS: PANTOPRAZOLE SODIUM 40 MG/VIAL IV SCH (08:10)
[2019-10-13] MEDS: MEROPENEM-0.9% SODIUM CHLORIDE 50 ML IV SCH ×2 (08:10→21:37)
[2019-10-13] MEDS: ASPIRIN 81MG TABLET PO SCH (08:11)
[2019-10-13] MEDS: VANCOMYCIN HCL 750 MG in DEXT 5% WATER 250 ML IV SCH ×2 (11:00→21:06)
[2019-10-13] MEDS: LORAZEPAM 2MG/ML CPJ IM PRN (18:34)
[2019-10-13] MEDS: ENOXAPARIN 40MG/0.4ML SYR SUBCUT SCH (21:02)
[2019-10-13] MEDS: DIPHENHYDRAMINE 50MG/ML VIAL IV PRN (23:14)
[2019-10-14] VITALS (13 sets, daily range): BP systolic 107–155; BP diastolic 32–110
[2019-10-14] MEDS: INSULIN LISPRO 100 UNITS/ML SUBCUT SCH ×4 (00:09→18:00)
[2019-10-14] MEDS: BLOOD SUGAR DIAGNOSTIC STRIP TEST SCH ×4 (00:09→18:03)
[2019-10-14] MEDS: DEXT 5%/0.45% NACL 1000ML 1,000 ML IV SCH (03:03)
[2019-10-14] MEDS: SODIUM CHLORIDE 0.9% INJ 3ML FLUSH IVF SCH ×3 (05:21→21:20)
[2019-10-14] MEDS: IPRATROPIUM/ALBUTEROL 0.5-3(2.5)MG/3ML NEB HHN SCH ×3 (07:42→23:42)
[2019-10-14] MEDS: DIPHENHYDRAMINE 50MG/ML VIAL IV PRN (08:11)
[2019-10-14] MEDS: PANTOPRAZOLE SODIUM 40 MG/VIAL IV SCH (08:11)
[2019-10-14] MEDS: ASPIRIN 81MG TABLET PO SCH (08:11)
[2019-10-14] MEDS: VANCOMYCIN HCL 750 MG in DEXT 5% WATER 250 ML IV SCH ×2 (09:17→20:49)
[2019-10-14] MEDS: DOCUSATE SODIUM 100MG CAPSULE PO PRN (11:57)
[2019-10-14] MEDS: MEROPENEM-0.9% SODIUM CHLORIDE 50 ML IV SCH ×2 (12:55→20:49)
[2019-10-14] MEDS: LORAZEPAM 2MG/ML CPJ IM PRN (16:53)
[2019-10-14] MEDS: ENOXAPARIN 40MG/0.4ML SYR SUBCUT SCH (20:49)
[2019-10-15] VITALS (13 sets, daily range): BP systolic 93–139; BP diastolic 29–84
[2019-10-15] MEDS: INSULIN LISPRO 100 UNITS/ML SUBCUT SCH ×4 (00:03→17:07)
[2019-10-15] MEDS: BLOOD SUGAR DIAGNOSTIC STRIP TEST SCH ×4 (00:03→17:08)
[2019-10-15] MEDS: DEXT 5%/0.45% NACL 1000ML 1,000 ML IV SCH (03:11)
[2019-10-15] MEDS: SODIUM CHLORIDE 0.9% INJ 3ML FLUSH IVF SCH ×3 (05:25→21:11)
[2019-10-15 07:35] LABS: BASOPHILS % 0.7 % (0.0-2.0); EOSINOPHILS % 5.7 % (0.0-5.0); HEMATOCRIT. 28.3 % (36.0-48.0); HEMOGLOBIN. 9.6 g/dL (12.0-16.0); LYMPHOCYTES % 17.8 % (20.0-50.0); MEAN CORPUSCULAR HEMOGLOBIN 29.9 pg (28.0-32.0); MEAN CORPUSCULAR VOLUME 88.2 fL (81.0-99.0); MEAN PLATELET VOLUME 8.7 fl (7.4-10.4); MONOCYTES % 6.8 % (2.0-8.0); PLATELET 229 x1000/uL (130-400); RED BLOOD CELL COUNT 3.21 mill/uL (4.2-5.4); RED CELL DISTRIBUTION WIDTH 13.7 % (11.6-14.6)
[2019-10-15 07:40] LABS: CHLORIDE 111 mEq/L (98-107)
[2019-10-15] MEDS: DOCUSATE SODIUM 100MG CAPSULE PO PRN (08:25)
[2019-10-15] MEDS: FAMOTIDINE 20MG TABLET PO SCH (08:26)
[2019-10-15] MEDS: ASPIRIN 81MG TABLET PO SCH (08:26)
[2019-10-15] MEDS: IPRATROPIUM/ALBUTEROL 0.5-3(2.5)MG/3ML NEB HHN SCH ×2 (10:37→15:28)
[2019-10-15] MEDS ORDERED: POTASSIUM CHLORIDE 20MEQ TABLET SR PO NR (10:45)
[2019-10-15] MEDS: ENOXAPARIN 40MG/0.4ML SYR SUBCUT SCH (21:11)
[2019-10-16] VITALS (14 sets, daily range): BP systolic 114–157; BP diastolic 47–93
[2019-10-16] MEDS: IPRATROPIUM/ALBUTEROL 0.5-3(2.5)MG/3ML NEB HHN SCH ×3 (01:10→16:47)
[2019-10-16] MEDS: DEXT 5%/0.45% NACL 1000ML 1,000 ML IV SCH (03:30)
[2019-10-16] MEDS: ACETAMINOPHEN 325MG TABLET PO PRN ×2 (05:36→20:57)
[2019-10-16] MEDS: SODIUM CHLORIDE 0.9% INJ 3ML FLUSH IVF SCH ×2 (05:42→13:36)
[2019-10-16] MEDS: INSULIN LISPRO 100 UNITS/ML SUBCUT SCH ×4 (05:43→18:17)
[2019-10-16] MEDS: BLOOD SUGAR DIAGNOSTIC STRIP TEST SCH ×4 (05:43→18:13)
[2019-10-16] MEDS: ASPIRIN 81MG TABLET PO SCH (08:35)
[2019-10-16] MEDS: FAMOTIDINE 20MG TABLET PO SCH (08:36)
[2019-10-16] MEDS: ENOXAPARIN 40MG/0.4ML SYR SUBCUT SCH (20:58)
== END 2019-10-16 22:58 | disposition short-term general hospital (02) | DRG 207 ==
LOC: ER 17:13 → EDBEDREQTM 17:59 → EDBEDREQ 19:59 → ENRESERV 10-08 19:41 → CANRESERV 10-08 19:41 → MICUSO 10-08 19:56 → EDBD 10-08 19:56 → ENRESERV 10-08 21:11 → CVICU 10-09 22:00 → 3WST 10-13 14:05
PROVIDERS: ADMIT Internal Medicine; ATTEND Internal Medicine
PROC: 5A1955Z Respiratory Ventilation, Greater than 96 Consecutive Hours (ICD-10-PCS; principal; 2019-10-08)
PROC: 0BH17EZ Insertion of Endotracheal Airway into Trachea, Via Natural or Artificial Opening (ICD-10-PCS; 2019-10-08)
PROC: B54BZZA Ultrasonography of Right Lower Extremity Veins, Guidance (ICD-10-PCS; 2019-10-08)
PROC: 06HY33Z Insertion of Infusion Device into Lower Vein, Percutaneous Approach (ICD-10-PCS; 2019-10-08)
DX: J96.01 Acute respiratory failure with hypoxia (principal); I21.4 Non-ST elevation (NSTEMI) myocardial infarction; K85.90 Acute pancreatitis without necrosis or infection, unspecified; J44.1 Chronic obstructive pulmonary disease with (acute) exacerbation; E87.2 Acidosis; I50.20 Unspecified systolic (congestive) heart failure; N39.0 Urinary tract infection, site not specified; R65.10 Systemic inflammatory response syndrome (SIRS) of non-infectious origin without acute organ dysfunction; E11.9 Type 2 diabetes mellitus without complications; E78.5 Hyperlipidemia, unspecified; F03.90 Unspecified dementia, unspecified severity, without behavioral disturbance, psychotic disturbance, mood disturbance, and anxiety; D64.9 Anemia, unspecified; D72.810 Lymphocytopenia; E78.00 Pure hypercholesterolemia, unspecified; E87.6 Hypokalemia; Z20.828 Contact with and (suspected) exposure to other viral communicable diseases; I11.0 Hypertensive heart disease with heart failure; Z87.891 Personal history of nicotine dependence; Z88.0 Allergy status to penicillin; Z79.82 Long term (current) use of aspirin; Z79.899 Other long term (current) drug therapy; Z78.1 Physical restraint status; Z86.73 Personal history of transient ischemic attack (TIA), and cerebral infarction without residual deficits; Z03.818 Encounter for observation for suspected exposure to other biological agents ruled out
CPT/HCPCS: 31500; 36415; 36556; 36600; 71045; 80048; 80053; 80061; 80202; 80305; 80320; 81003; 82375; 82550; 82553; 82728; 82805; 82962; 83036; 83605; 83615; 83880; 84145; 84439; 84443; 84484; 85025; 85379; 86140; 87070; 87635; 87804; 92610; 93005; 93306; 94002; 94003; 94640; 97162; 99291; C9113; J0360; J0456; J1200; J1650; J1815; J2060; J2185; J2250; J2405; J2704; J3010; J3370; J3480; J3490; J7050; J7060; G0480

== ENCOUNTER 2022-06-16 08:46 | Emergency (ER) | payer OTHER ==
[~2022-06-16] VITALS: Ht 160 cm; Wt 48.5 kg
[~2022-06-16 08:46] MED LIST changes: -LISI-604 PO; +LISI20TA31 PO
[2022-06-16] MEDS ORDERED: IOHEXOL-350 100 ML BOTTLE ONE (09:24)
[2022-06-16 09:53] LABS: BASOPHILS % 0.4 % (0.0-2.0); EOSINOPHILS % 2.2 % (0.0-5.0); HEMATOCRIT. 31.9 % (36.0-48.0); HEMOGLOBIN. 10.6 g/dL (12.0-16.0); LYMPHOCYTES % 17.4 % (20.0-50.0); MEAN CORPUSCULAR HEMOGLOBIN 30.4 pg (28.0-32.0); MEAN CORPUSCULAR VOLUME 91.6 fL (81.0-99.0); MEAN PLATELET VOLUME 7.9 fl (7.4-10.4); MONOCYTES % 9.6 % (2.0-8.0); NEUTROPHILS % 70.4 % (40.0-76.0); PLATELET 230 x1000/uL (130-400); RED BLOOD CELL COUNT 3.48 mill/uL (4.2-5.4); RED CELL DISTRIBUTION WIDTH 13.8 % (11.6-14.6)
[2022-06-16 10:01] LABS: INR 1.1; PROTHROMBIN TIME 11.9 sec (9.6-11.0)
[2022-06-16 10:05] LABS: CHLORIDE 108 mEq/L (98-107)
[2022-06-16 10:13] LABS: ETHANOL BLOOD < 10 mg/dL
[2022-06-16] MEDS ORDERED: ASPIRIN 325MG EC TABLET PO ONE (11:00)
[2022-06-16 11:25] VITALS: BP 166/64
== END 2022-06-16 12:52 | disposition short-term general hospital (02) ==
LOC: ER 08:46 → EDBEDREQSVC 10:28 → EDBEDREQTM 10:28 → EDBEDREQ 10:28 → CANBEDREQ 11:01 → ER 12:52
DX: I63.9 Cerebral infarction, unspecified (principal); I10 Essential (primary) hypertension; E11.9 Type 2 diabetes mellitus without complications; J44.9 Chronic obstructive pulmonary disease, unspecified; E78.00 Pure hypercholesterolemia, unspecified; F03.90 Unspecified dementia, unspecified severity, without behavioral disturbance, psychotic disturbance, mood disturbance, and anxiety; Z86.73 Personal history of transient ischemic attack (TIA), and cerebral infarction without residual deficits; Z20.822 Contact with and (suspected) exposure to COVID-19; Z88.0 Allergy status to penicillin
CPT/HCPCS: 36415; 70450; 70496; 70498; 71045; 80053; 80320; 82962; 85025; 85610; 87426; 93005; 99291; Q9967; G0480

== ENCOUNTER 2022-08-12 03:22 | Inpatient (IN) | payer OTHER ==
[~2022-08-12] VITALS: Ht 165.1 cm; Wt 45.2 kg
[2022-08-12] MEDS ORDERED: DEXTROSE 50% WATER 50ML SYRINGE IV ONE (03:34)
[2022-08-12 05:25] LABS: CHLORIDE 103 mEq/L (98-107)
[2022-08-12 05:29] LABS: BASOPHILS % 0.2 % (0.0-2.0); EOSINOPHILS % 2.4 % (0.0-5.0); HEMATOCRIT. 41.1 % (36.0-48.0); HEMOGLOBIN. 13.5 g/dL (12.0-16.0); LYMPHOCYTES % 22.7 % (20.0-50.0); MEAN CORPUSCULAR HEMOGLOBIN 29.6 pg (28.0-32.0); MEAN CORPUSCULAR VOLUME 90.5 fL (81.0-99.0); MEAN PLATELET VOLUME 7.5 fl (7.4-10.4); MONOCYTES % 2.3 % (2.0-8.0); NEUTROPHILS % 72.4 % (40.0-76.0); PLATELET 289 x1000/uL (130-400); RED BLOOD CELL COUNT 4.55 mill/uL (4.2-5.4); RED CELL DISTRIBUTION WIDTH 13.4 % (11.6-14.6)
[2022-08-12 05:41] LABS: ETHANOL BLOOD < 10 mg/dL
[2022-08-12] MEDS ORDERED: VANCOMYCIN 1G PREMIX 200 ML IV SCH (10:45)
[2022-08-12] MEDS ORDERED: METRONIDAZOLE 500 MG PREMIX 100 ML IV ONE (10:45)
[2022-08-12] MEDS ORDERED: LEVOFLOXACIN 750MG PREMIX 150 ML IV ONE (10:45)
[2022-08-12] MEDS ORDERED: ONDANSETRON HCL 4MG/2ML INJ IV PRN ×2 (11:45→13:00)
[2022-08-12] MEDS ORDERED: MORPHINE SULFATE 2 MG/ML CPJ (NOT FOR IM USE) IV PRN (11:45)
[2022-08-12] MEDS ORDERED: NALOXONE HCL 0.4MG/ML VIAL IV PRN (11:45)
[2022-08-12] MEDS ORDERED: HYDRALAZINE 20MG/ML VIAL IV PRN (11:45)
[2022-08-12] MEDS ORDERED: ROCURONIUM BROMIDE 10MG/ML VIAL 5ML IV ONE (11:51)
[2022-08-12] MEDS ORDERED: NEOSTIGMINE METHYLSULFATE 1MG/ML 10 ML VIAL ONE (11:51)
[2022-08-12] MEDS ORDERED: SUCCINYLCHOLINE CHLORIDE 200MG/10ML IV ONE (11:51)
[2022-08-12] MEDS ORDERED: DEXAMETHASONE 4MG/ML 1ML VIAL ONE (11:51)
[2022-08-12] MEDS ORDERED: CEFAZOLIN SODIUM 1000MG/VIAL ONE (11:51)
[2022-08-12] MEDS ORDERED: ONDANSETRON HCL 4MG/2ML INJ ONE (11:51)
[2022-08-12] MEDS ORDERED: ETOMIDATE 2MG/ML 10ML VIAL IV ONE (11:51)
[2022-08-12] MEDS ORDERED: FENTANYL CITRATE/PF 50MCG/ML 2ML VIAL ONE (11:52)
[2022-08-12] MEDS ORDERED: MIDAZOLAM HCL 2 MG/2 ML VIAL ONE (11:52)
[2022-08-12] MEDS ORDERED: GLYCOPYRROLATE 0.2 MG/ML 2ML VIAL ONE ×3 (11:52→13:18)
[2022-08-12] MEDS ORDERED: MEPERIDINE HCL/PF 25MG/ML CPJ IV PRN (13:00)
[2022-08-12] MEDS ORDERED: HYDROMORPHONE HCL/PF 2MG/ML CPJ IV PRN (13:00)
[2022-08-12] MEDS ORDERED: LABETALOL 5MG/ML SYR 20 MG/4 ML SYRINGE IV PRN (13:00)
[2022-08-12] MEDS ORDERED: LABETALOL HCL 5MG/ML VIAL 20ML IV ONE (13:12)
[2022-08-12 15:30] VITALS: BP 146/64
[2022-08-12] MEDS: DEXT 5%/0.45% NACL 1000ML 1,000 ML IV SCH (18:15)
[2022-08-12 20:00] VITALS: BP 155/70
[2022-08-13] VITALS: BP 131/65
[2022-08-13] MEDS: DEXT 5%/0.45% NACL 1000ML 1,000 ML IV SCH ×2 (00:15→11:44)
[2022-08-13 03:42] LABS: CLARITY URINE CLEAR (CLEAR); COLOR URINE YELLOW (YELLOW); KETONES URINE NEGATIVE (NEGATIVE); LEUKOCYTE ESTERASE URINE NEGATIVE (NEGATIVE); NITRITE URINE NEGATIVE (NEGATIVE); OCCULT BLOOD URINE 1+ (NEGATIVE); PROTEIN URINE NEGATIVE (NEGATIVE); SPECIFIC GRAVITY URINE 1.013 (1.005-1.030); UROBILINOGEN URINE 0.2 E.U./dL (0.2-1.0)
[2022-08-13 04:00] VITALS: BP 160/74
[2022-08-13 04:14] LABS: *AMPHETAMINES SCREEN URINE NEGATIVE (NEGATIVE); *BARBITURATES SCREEN URINE NEGATIVE (NEGATIVE); *BENZODIAZEPINES SCREEN URINE PRESUMTIVE POSITIVE (NEGATIVE); *COCAINE SCREEN URINE NEGATIVE (NEGATIVE); CANNABINOID URINE SCREEN NEGATIVE (NEGATIVE); METHADONE URINE SCREEN NEGATIVE (NEGATIVE); OPIATES URINE SCREEN PRESUMTIVE POSITIVE (NEGATIVE); PHENCYCLIDINE URINE SCREEN NEGATIVE (NEGATIVE)
[2022-08-13 06:47] LABS: BASOPHILS % 0.1 % (0.0-2.0); HEMATOCRIT. 38.8 % (36.0-48.0); HEMOGLOBIN. 12.6 g/dL (12.0-16.0); LYMPHOCYTES % 7.8 % (20.0-50.0); MEAN CORPUSCULAR HEMOGLOBIN 29.9 pg (28.0-32.0); MEAN CORPUSCULAR VOLUME 92.2 fL (81.0-99.0); MEAN PLATELET VOLUME 8.2 fl (7.4-10.4); MONOCYTES % 5.3 % (2.0-8.0); NEUTROPHILS % 86.8 % (40.0-76.0); PLATELET 278 x1000/uL (130-400); RED BLOOD CELL COUNT 4.21 mill/uL (4.2-5.4); RED CELL DISTRIBUTION WIDTH 13.6 % (11.6-14.6)
[2022-08-13 06:50] LABS: CHLORIDE 104 mEq/L (98-107)
[2022-08-13] MEDS ORDERED: METF-414 MT (06:59)
[2022-08-13] MEDS ORDERED: VER40 MT (06:59)
[2022-08-13] MEDS ORDERED: VENL25TA4 MT (06:59)
[2022-08-13] MEDS ORDERED: CHOL400D7 PO (06:59)
[2022-08-13] MEDS ORDERED: CYAN10003 SL (06:59)
[2022-08-13 08:00] VITALS: BP 122/77
[2022-08-13] MEDS ORDERED: DEXTROSE 50% WATER 50ML SYRINGE IV PRN (08:15)
[2022-08-13] MEDS: PANTOPRAZOLE SODIUM 40 MG/VIAL IV SCH (08:32)
[2022-08-13] MEDS: BLOOD SUGAR DIAGNOSTIC STRIP TEST SCH ×3 (11:32→20:58)
[2022-08-13 12:00] VITALS: BP 118/75
[2022-08-13] MEDS ORDERED: LEVOFLOXACIN 500MG PREMIX 100 ML IV SCH (14:00)
[2022-08-13] MEDS: METRONIDAZOLE 500 MG PREMIX 100 ML IV SCH ×2 (14:19→20:44)
[2022-08-13] MEDS: LEVOFLOXACIN 250MG PREMIX 50 ML IV SCH (14:19)
[2022-08-13 16:00] VITALS: BP 109/65
[2022-08-13 20:00] VITALS: BP 146/55
[2022-08-14] VITALS (7 sets, daily range): BP systolic 128–150; BP diastolic 55–67
[2022-08-14] MEDS: DEXT 5%/0.45% NACL 1000ML 1,000 ML IV SCH ×2 (01:21→17:39)
[2022-08-14] MEDS: METRONIDAZOLE 500 MG PREMIX 100 ML IV SCH ×3 (04:53→22:22)
[2022-08-14 06:46] LABS: BASOPHILS % 0.2 % (0.0-2.0); EOSINOPHILS % 1.3 % (0.0-5.0); HEMATOCRIT. 33.7 % (36.0-48.0); HEMOGLOBIN. 11.1 g/dL (12.0-16.0); LYMPHOCYTES % 8.4 % (20.0-50.0); MEAN CORPUSCULAR HEMOGLOBIN 29.4 pg (28.0-32.0); MEAN CORPUSCULAR VOLUME 89.5 fL (81.0-99.0); MEAN PLATELET VOLUME 8.1 fl (7.4-10.4); MONOCYTES % 6.3 % (2.0-8.0); NEUTROPHILS % 83.8 % (40.0-76.0); PLATELET 242 x1000/uL (130-400); RED BLOOD CELL COUNT 3.77 mill/uL (4.2-5.4); RED CELL DISTRIBUTION WIDTH 13.3 % (11.6-14.6)
[2022-08-14] MEDS: BLOOD SUGAR DIAGNOSTIC STRIP TEST SCH ×4 (07:03→21:00)
[2022-08-14 07:47] LABS: CHLORIDE 105 mEq/L (98-107)
[2022-08-14] MEDS: PANTOPRAZOLE SODIUM 40 MG/VIAL IV SCH (08:32)
[2022-08-14] MEDS: LEVOFLOXACIN 250MG PREMIX 50 ML IV SCH (11:58)
== END 2022-08-14 23:10 | disposition short-term general hospital (02) | DRG 326 ==
LOC: ER 03:37 → 8WST 11:20 → 7WST 08-14 15:18
PROVIDERS: ADMIT Internal Medicine; ATTEND Internal Medicine
PROC: 0DQ70ZZ Repair Stomach, Pylorus, Open Approach (ICD-10-PCS; principal; 2022-08-12)
DX: K27.5 Chronic or unspecified peptic ulcer, site unspecified, with perforation (principal); K63.1 Perforation of intestine (nontraumatic); E87.1 Hypo-osmolality and hyponatremia; E11.649 Type 2 diabetes mellitus with hypoglycemia without coma; F03.90 Unspecified dementia, unspecified severity, without behavioral disturbance, psychotic disturbance, mood disturbance, and anxiety; Z20.822 Contact with and (suspected) exposure to COVID-19; J44.9 Chronic obstructive pulmonary disease, unspecified; E78.00 Pure hypercholesterolemia, unspecified; I10 Essential (primary) hypertension; Z88.0 Allergy status to penicillin; Z79.899 Other long term (current) drug therapy; Z86.73 Personal history of transient ischemic attack (TIA), and cerebral infarction without residual deficits
CPT/HCPCS: 36415; 71045; 71250; 74176; 80048; 80053; 80305; 80320; 81003; 82962; 83036; 83605; 84443; 84484; 85025; 87070; 87075; 87426; 93005; 97162; 99285; C1893; C9113; C9803; J0330; J0360; J0690; J1100; J1170; J1956; J2250; J2270; J2405; J2710; J3010; J3370; J3490; G0480

== ENCOUNTER 2023-02-27 10:31 | Emergency (ER) | payer OTHER ==
[~2023-02-27] VITALS: Ht 165.1 cm; Wt 46.0 kg
[~2023-02-27 10:31] MED LIST changes: +CHOL400D7 PO; +CYAN10003 SL; +METF-414 MT; +VENL25TA4 MT; +VER40 MT
[2023-02-27 10:43] VITALS: O2SAT 100
[2023-02-27 13:26] LABS: BASOPHILS % 0.4 % (0.0-2.0); EOSINOPHILS % 1.4 % (0.0-5.0); HEMATOCRIT. 33.3 % (36.0-48.0); HEMOGLOBIN. 10.6 g/dL (12.0-16.0); LYMPHOCYTES % 17.5 % (20.0-50.0); MEAN CORPUSCULAR HEMOGLOBIN 28.7 pg (28.0-32.0); MEAN CORPUSCULAR HGB CONC 31.8 g/dL (31.0-37.0); MEAN CORPUSCULAR VOLUME 90.1 fL (81.0-99.0); MEAN PLATELET VOLUME 8.3 fl (7.4-10.4); MONOCYTES % 8.9 % (2.0-8.0); NEUTROPHILS % 71.8 % (40.0-76.0); PLATELET 208 x1000/uL (130-400); RED BLOOD CELL COUNT 3.69 mill/uL (4.2-5.4); RED CELL DISTRIBUTION WIDTH 15.1 % (11.6-14.6); WHITE BLOOD COUNT 8.5 x1000/uL (4.5-11.0)
[2023-02-27 13:35] LABS: CHLORIDE 110 mEq/L (98-107); INDEX HEMOLYSI 1 (1-3); INDEX ICTERIC 1 (1-4); INDEX LIPEMIC 1 (1-3); POTASSIUM 3.9 mEq/L (3.5-5.1); SODIUM 140 mEq/L (136-145)
[2023-02-27 13:44] LABS: ALANINE AMINOTRANSFERASE 15 IU/L (13-61); ALBUMIN 3.2 g/dL (3.4-5.0); ASPARTATE AMINOTRANSFERASE 13 IU/L (15-37); BILIRUBIN TOTAL 0.3 mg/dL (0.1-1.0); CALCIUM 9.5 mg/dL (8.5-10.1); CARBON DIOXIDE 27 mEq/L (21-32); CREATININE 0.9 mg/dL (0.6-1.3); GLUCOSE 93 mg/dL (70-105); PROTEIN TOTAL 6.9 g/dL (6.0-8.3); TROPONIN I HIGH SENSITIVITY 15 ng/L (<54); UREA NITROGEN BLOOD 21 mg/dL (7-21)
[2023-02-27] MEDS ORDERED: SODIUM CHLORIDE 0.9% 1,000 ML IV ONE (13:45)
[2023-02-27 14:12] LABS: CLARITY URINE CLEAR (CLEAR); COLOR URINE YELLOW (YELLOW); GLUCOSE URINE NEGATIVE (NEGATIVE); KETONES URINE NEGATIVE (NEGATIVE); LEUKOCYTE ESTERASE URINE NEGATIVE (NEGATIVE); NITRITE URINE NEGATIVE (NEGATIVE); OCCULT BLOOD URINE NEGATIVE (NEGATIVE); PH URINE 5.5 (4.5-8.0); PROTEIN URINE 3+ (NEGATIVE); SPECIFIC GRAVITY URINE 1.023 (1.005-1.030); UROBILINOGEN URINE 0.2 E.U./dL (0.2-1.0)
[2023-02-27 14:37] LABS: SQUAMOUS EPITHELIAL CELL URINE 1+ /lpf (RARE/1+)
[2023-02-27 14:38] LABS: BACTERIA URINE 1+; RBC URINE 0-2 /hpf (0-2); YEAST URINE NONE SEEN
[2023-02-27 14:51] VITALS: BP 140/68; PULSE 62; RESP 12; TEMP 98.9
== END 2023-02-27 15:03 | disposition home or self-care (01) ==
LOC: ER 11:39
DX: R10.9 Unspecified abdominal pain (principal); E78.00 Pure hypercholesterolemia, unspecified; E11.9 Type 2 diabetes mellitus without complications; J44.1 Chronic obstructive pulmonary disease with (acute) exacerbation; Z88.0 Allergy status to penicillin; Z79.82 Long term (current) use of aspirin; Z79.899 Other long term (current) drug therapy; Z86.73 Personal history of transient ischemic attack (TIA), and cerebral infarction without residual deficits
CPT/HCPCS: 99291; 74176; 80053; 81003; 83690; 85025; 84484; 36415; 93005; J7030

== ENCOUNTER 2023-12-01 09:17 | Emergency (ER) | payer OTHER ==
[~2023-12-01] VITALS: Ht 167.6 cm; Wt 55.0 kg
[2023-12-01 09:21] VITALS: O2SAT 100
[2023-12-01 10:20] LABS: BASOPHILS % 0.5 % (0.0-2.0); EOSINOPHILS % 2.2 % (0.0-5.0); HEMATOCRIT. 38.4 % (36.0-48.0); HEMOGLOBIN. 12.3 g/dL (12.0-16.0); MEAN CORPUSCULAR HGB CONC 32.1 g/dL (31.0-37.0); MEAN CORPUSCULAR VOLUME 93.6 fL (81.0-99.0); MEAN PLATELET VOLUME 8.6 fl (7.4-10.4); NEUTROPHILS % 59.3 % (40.0-76.0); PLATELET 181 x1000/uL (130-400); RED CELL DISTRIBUTION WIDTH 14.2 % (11.6-14.6); WHITE BLOOD COUNT 7.4 x1000/uL (4.5-11.0)
[2023-12-01 10:33] LABS: CHLORIDE 106 mEq/L (98-107); SODIUM 138 mEq/L (136-145)
[2023-12-01 10:34] LABS: CARBON DIOXIDE 23 mEq/L (21-32)
[2023-12-01 10:38] LABS: AMMONIA < 17 uMol/L (<32)
[2023-12-01 10:39] LABS: CREATININE 0.8 mg/dL (0.6-1.0); GLUCOSE 95 mg/dL (70-105); TROPONIN I HIGH SENSITIVITY < 4 ng/L (3.0-34); UREA NITROGEN BLOOD 13 mg/dL (9-23)
[2023-12-01 10:40] LABS: ALANINE AMINOTRANSFERASE 8 IU/L (10-49)
[2023-12-01 10:41] LABS: ALBUMIN 4.2 g/dL (3.2-4.8); ASPARTATE AMINOTRANSFERASE 19 IU/L (<34); BILIRUBIN TOTAL 0.3 mg/dL (0.1-1.0); PROTEIN TOTAL 7.5 g/dL (6.0-8.3)
[2023-12-01 10:42] LABS: BILIRUBIN DIRECT < 0.1 mg/dL (<=3.0)
[2023-12-01] MEDS: LABETALOL 5MG/ML 4ML INJ IV ONE (11:31)
[2023-12-01 12:09] LABS: CLARITY URINE CLEAR (CLEAR); COLOR URINE YELLOW (YELLOW); GLUCOSE URINE NEGATIVE (NEGATIVE); KETONES URINE NEGATIVE (NEGATIVE); LEUKOCYTE ESTERASE URINE NEGATIVE (NEGATIVE); NITRITE URINE NEGATIVE (NEGATIVE); OCCULT BLOOD URINE NEGATIVE (NEGATIVE); PH URINE 5.5 (4.5-8.0); PROTEIN URINE NEGATIVE (NEGATIVE); UROBILINOGEN URINE 0.2 E.U./dL (0.2-1.0)
[2023-12-01] MEDS: AMLODIPINE 5MG TABLET PO ONE (13:06)
[2023-12-01 14:16] VITALS: BP 167/65; PULSE 52; RESP 16; TEMP 98.1
== END 2023-12-01 14:18 | disposition home or self-care (01) ==
LOC: ER 09:17 → CANBEDREQ 12:48 → ER 14:18
DX: R06.02 Shortness of breath (principal); J44.9 Chronic obstructive pulmonary disease, unspecified; E11.9 Type 2 diabetes mellitus without complications; E78.00 Pure hypercholesterolemia, unspecified; I10 Essential (primary) hypertension; Z86.73 Personal history of transient ischemic attack (TIA), and cerebral infarction without residual deficits; Z88.0 Allergy status to penicillin
CPT/HCPCS: 36415; 71045; 80048; 80076; 81003; 82140; 83880; 84443; 84484; 85025; 93005; 99285; J3490

== ENCOUNTER 2025-03-01 02:49 | Emergency (ER) | payer OTHER ==
[~2025-03-01] VITALS: Ht 165.1 cm; Wt 46.0 kg
[~2025-03-01 02:49] MED LIST changes: -MIDO10TA PO; +MIDO10TA3 PO
[2025-03-01 02:51] VITALS: O2SAT 100
[2025-03-01 04:21] LABS: BASOPHILS % 0.5 % (0.0-2.0); EOSINOPHILS % 2.2 % (0.0-5.0); HEMATOCRIT. 39.6 % (36.0-48.0); HEMOGLOBIN. 12.9 g/dL (12.0-16.0); LYMPHOCYTES % 30.7 % (20.0-50.0); MEAN PLATELET VOLUME 8.2 fl (7.4-10.4); MONOCYTES % 7.9 % (2.0-8.0); NEUTROPHILS % 58.7 % (40.0-76.0); PLATELET 201 x1000/uL (130-400); RED BLOOD CELL COUNT 4.33 mill/uL (4.2-5.4); RED CELL DISTRIBUTION WIDTH 13.5 % (11.6-14.6)
[2025-03-01 05:17] LABS: INR 1.0
[2025-03-01 06:15] LABS: CREATININE 0.9 mg/dL (0.6-1.0); UREA NITROGEN BLOOD 20 mg/dL (9-23)
[2025-03-01 06:16] LABS: ETHANOL BLOOD < 10 mg/dL (<10); TROPONIN I HIGH SENSITIVITY 8 ng/L (3.0-34)
[2025-03-01 07:05] LABS: CLARITY URINE CLEAR (CLEAR); COLOR URINE YELLOW (YELLOW); GLUCOSE URINE NEGATIVE (NEGATIVE); KETONES URINE NEGATIVE (NEGATIVE); LEUKOCYTE ESTERASE URINE NEGATIVE (NEGATIVE); NITRITE URINE NEGATIVE (NEGATIVE); OCCULT BLOOD URINE NEGATIVE (NEGATIVE); PH URINE 7.0 (4.5-8.0); PROTEIN URINE NEGATIVE (NEGATIVE); SPECIFIC GRAVITY URINE 1.011 (1.005-1.030); UROBILINOGEN URINE 0.2 E.U./dL (0.2-1.0)
[2025-03-01] MEDS: ALBUTEROL (0.5%) 2.5MG/0.5ML NEB HHN ONE (07:08)
[2025-03-01] MEDS: ALBUTEROL (0.5%) 2.5MG/0.5ML NEB HHN NR (07:09)
[2025-03-01] MEDS: IPRATROPIUM BROMIDE (0.02%) 0.5MG/2.5ML NEB HHN NR (07:09)
[2025-03-01] MEDS: PREDNISONE 20MG TABLET PO ONE (07:16)
[2025-03-01 07:18] LABS: *AMPHETAMINES SCREEN URINE NEGATIVE (NEGATIVE); *BARBITURATES SCREEN URINE NEGATIVE (NEGATIVE); *BENZODIAZEPINES SCREEN URINE NEGATIVE (NEGATIVE); *COCAINE SCREEN URINE NEGATIVE (NEGATIVE); CANNABINOID URINE SCREEN NEGATIVE (NEGATIVE); ECSTASY MDMA SCREEN URINE NEGATIVE (NEGATIVE); METHADONE URINE SCREEN NEGATIVE (NEGATIVE); OPIATES URINE SCREEN NEGATIVE (NEGATIVE); PHENCYCLIDINE URINE SCREEN NEGATIVE (NEGATIVE)
[2025-03-01] MEDS: HYDRALAZINE 20MG/ML VIAL IV NR (08:37)
[2025-03-01 09:45] VITALS: BP 150/65; PULSE 51; RESP 12; TEMP 37; O2SAT 100
== END 2025-03-01 11:14 | disposition short-term general hospital (02) ==
LOC: ER 02:49 → CANBEDREQ 07:37 → ER 11:14
DX: J45.901 Unspecified asthma with (acute) exacerbation (principal); I10 Essential (primary) hypertension; G40.909 Epilepsy, unspecified, not intractable, without status epilepticus; Z20.822 Contact with and (suspected) exposure to COVID-19; Z00.00 Encounter for general adult medical examination without abnormal findings; Z88.0 Allergy status to penicillin; Z79.82 Long term (current) use of aspirin
CPT/HCPCS: 80305; 80048; 81003; 80320; 83880; 85025; 85610; 85730; 84484; 36415; 71045; 96374; 99285; 87426; J7512; J0360; G0480